=== PATIENT | female | born 1930 | race Caucasian/White ===

== ENCOUNTER 2017-09-26 14:31 | Emergency (ER) | payer MEDICARE ==
[~2017-09-26] VITALS: Ht 160 cm; Wt 77.1 kg
[~2017-09-26 14:31] MED LIST: ACET325 PO; ARTIFICIAL TEA3.5 G1 BOTHEYES; ASPI325 PO; ASPI500; ASPI81CH PO; ASPI81EC PO; ATOR40TA; ATOR40TA PO; AZIT250 PO; BISA10S PR; CALCAVITD PO; CALCAVITDA PO; CEFU250 PO; CITA20 PO; CLOP75; DIAZ5 PO; DIGO.125; DIGO.125 PO; DIGO.25 PO; DILT120 PO; DILT120ERA PO; DILT180 PO; DIPH25; DOCU100 PO; FURO20 PO; HYDACE5 PO; HYDMETSO BOTHEYES; IBUP400 PO; IBUP600 PO; LAVAP17G PO; LEVFLO500 PO; LIDO5TP TOP; LOPE2C PO; LORA.5 PO; LORA1 PO; MECL25 PO; METO100 PO; METO100ER PO; METO25 PO; METO25ER PO; METO50ER PO; METR500 PO; Milk Of Ma400 MG/5 M PO; Mobic15 MG PO; NITR100CA PO; OMEPRAZOLE MAGN20 MG PO; ONDA4 PO; ONDA4ODT MM; ONDA8ODT MM; OXYC1TAB11; POTCHL10ER PO; PROACE100 PO; PROACE50 PO; PROM25 PO; PROP30DR BOTHEYES; Percocet 5-3251 EACH PO; RXONDA4ODT MM; RXPROACE PO; SULTRIDS PO; Secura Protecti50 GM TOP; Systane Nightt3.5 GM BOTHEYES; TETR.05OPS BOTHEYES; TRAM50 PO; Tylenol #3 El12.5 ML PO; Tylenol With C1 EACH PO; Ultram50 MG PO; VERA120ERB PO; VITA25000 PO; VITAMIN A PO; WARF1 PO; WARF2 PO; WARF4; WARF4 PO; Zofran4 MG PO
[2017-09-26 15:05] LABS: BASOPHILS ABSOLUTE AUTO 0.03 K/mm3 (0.00-0.23); BASOPHILS PERCENT AUTO 0 % (0-2); EOSINOPHILS ABSOLUTE AUTO 0.16 K/mm3 (0.00-0.68); EOSINOPHILS PERCENT AUTO 2 % (0-6); Hematocrit 42.4 % (33.0-51.0); Hemoglobin 13.5 g/dL (11.5-16.0); IMMATURE GRAN ABSOLUTE AUTO 0.04 K/mm3 (0.00-0.10); IMMATURE GRAN PERCENT AUTO 0 % (0-1); LYMPHOCYTES ABSOLUTE AUTO 0.92 K/mm3 (0.84-5.20); LYMPHOCYTES PERCENT AUTO 10 % (21-46); MONOCYTES ABSOLUTE AUTO 0.58 K/mm3 (0.16-1.47); MONOCYTES PERCENT AUTO 6 % (4-13); Mean Corpuscular HGB 29.2 pg (26.0-34.0); Mean Corpuscular HGB Conc 31.8 g/dL (31.5-36.5); Mean Corpuscular Volume 92 fL (80-100); Mean Platelet Volume 9.1 fL (9.1-12.4); NEUTROPHILS ABSOLUTE AUTO 7.61 K/mm3 (1.96-9.15); NEUTROPHILS PERCENT AUTO 82 % (41-73); Platelet Count 235 K/mm3 (150-400); RDW Coefficient Variation 14.2 % (11.7-14.2); RDW Standard Deviation 47.8 fL (35.1-46.3); Red Blood Cell Count 4.62 M/mm3 (3.80-5.20); White Blood Cell Count 9.34 K/mm3 (4.00-11.30)
[2017-09-26 15:32] LABS: Alanine Aminotransfer (ALT/SGP 14 U/L (12-78); Albumin, Blood 3.2 g/dL (3.4-5.0); Albumin/Globulin Ratio 0.7 (0.8-1.8); Alk Phos 117 U/L (50-136); Anion Gap 7 mmol/L (6-16); Aspartate Aminotrans (AST/SGOT 17 U/L (12-37); Bilirubin, Total 0.5 mg/dL (0.1-1.0); Blood Urea Nitrogen 21 mg/dL (8-24); Bun/Creatinine Ratio 21.4 (12.0-20.0); CO2, Blood 26 mmol/L (21-32); Calcium, Blood 8.4 mg/dL (8.5-10.1); Chloride, Blood 104 mmol/L (98-108); Creatinine, Blood 0.98 mg/dL (0.40-1.00); Globulin, Blood 4.7 g/dL (2.2-4.0); Glomerular Filtration Rate 57 (60-); Glucose, Blood 101 mg/dL (70-99); Potassium, Blood 4.4 mmol/L (3.5-5.5); Sodium, Blood 137 mmol/L (136-145); Total Protein, Blood 7.9 g/dL (6.4-8.2)
[2017-09-26 15:38] LABS: Troponin I <0.015 ng/mL (0.000-0.040)
[2017-09-26] MEDS ORDERED: LORA2 PO (15:58)
[2017-09-26] MEDS ORDERED: TRAM50 PO (15:59)
[2017-09-26] MEDS ORDERED: Zofran Odt4 MG SL (18:07)
[2017-09-26 19:10] LABS: Adenovirus F 40/41 Not Detected (NOT DETECT); Astrovirus Not Detected (NOT DETECT); Campylobacter Sp Not Detected (NOT DETECT); Cryptosporidium Not Detected (NOT DETECT); Cyclospora Cayetanensis Not Detected (NOT DETECT); E. Coli O157 Not Detected (NOT DETECT); Entamoeba Histolytica Not Detected (NOT DETECT); Enteroaggregative E. coli-EAEC Not Detected (NOT DETECT); Enteropathogenic E. coli-EPEC Not Detected (NOT DETECT); Enterotoxigenic E. coli-ETEC Not Detected (NOT DETECT); Giardia Lamblia Not Detected (NOT DETECT); Plesiomonas Shigelloides Not Detected (NOT DETECT); Rotavirus A Not Detected (NOT DETECT); Salmonella Sp Not Detected (NOT DETECT); Sapovirus Not Detected (NOT DETECT); Shiga Toxin-prod E. coli-STEC Not Detected (NOT DETECT); Shigella/Enteroin E. coli-EIEC Not Detected (NOT DETECT); Vibrio Cholerae Not Detected (NOT DETECT); Vibrio Sp Not Detected (NOT DETECT); Yersinia Enterocolitica Not Detected (NOT DETECT)
[2017-09-26 20:09] LABS: Influenza A Negative (NEGATIVE); Influenza B Negative (NEGATIVE)
[2017-09-26] MEDS ORDERED: LOPE2C PO (21:07)
[2017-09-26 21:56] LABS: Norovirus GI/GII Detected (NOT DETECT)
[2017-12-31] MEDS ORDERED: WARF2 PO (11:51)
[2017-12-31] MEDS ORDERED: METO25ER PO (11:52)
[2017-12-31] MEDS ORDERED: ASPI81CH PO (11:53)
[2017-12-31] MEDS ORDERED: Vitamin A8000 UNIT PO (11:54)
[2017-12-31] MEDS ORDERED: CALCIUM + D3 E1 EACH PO (12:05)
[2017-12-31] MEDS ORDERED: DILT120 PO (12:06)
[2017-12-31] MEDS ORDERED: CITA20 PO (12:06)
[2017-12-31] MEDS ORDERED: TRAM50 PO (12:07)
[2017-12-31] MEDS ORDERED: Omeprazole20 M1 PO (12:07)
[2018-01-03] MEDS ORDERED: LUBRIFRESH PM BOTHEYES (06:57)
[2018-01-03] MEDS ORDERED: Systane 0.3-0.1 EACH BOTHEYES (06:58)
[2018-01-03] MEDS ORDERED: FLUC200 PO (09:57)
[2018-08-06] MEDS ORDERED: CLIN300 PO (21:38)
== END 2017-09-26 21:28 | disposition home or self-care (01) ==
LOC: ER 14:31
PROVIDERS: Physician Assistant
DX: R07.2 Precordial pain (principal); A08.39 Other viral enteritis; I48.91 Unspecified atrial fibrillation; F03.90 Unspecified dementia, unspecified severity, without behavioral disturbance, psychotic disturbance, mood disturbance, and anxiety; Z88.0 Allergy status to penicillin; Z88.8 Allergy status to other drugs, medicaments and biological substances; Z88.5 Allergy status to narcotic agent; Z88.1 Allergy status to other antibiotic agents; Z79.82 Long term (current) use of aspirin; Z79.899 Other long term (current) drug therapy; Z79.01 Long term (current) use of anticoagulants
CPT/HCPCS: 71046; 80053; 84484; 85025; 87507; 87804; 93005; 93010; 99284

== ENCOUNTER 2017-09-27 04:29 | Observation (INO) | payer MEDICARE ==
[~2017-09-27] VITALS: Ht 162.6 cm; Wt 66.6 kg
[~2017-09-27 04:29] MED LIST changes: +LORA2 PO; +Zofran Odt4 MG SL
[2017-09-27 04:45] LABS: PCO2 Arterial 36.2 mmHg (35-45); PO2 Arterial 72.8 mmHg (80-100); pH Blood Arterial 7.39 (7.35-7.45)
[2017-09-27 04:49] LABS: BASOPHILS ABSOLUTE AUTO 0.02 K/mm3 (0.00-0.23); BASOPHILS PERCENT AUTO 0 % (0-2); EOSINOPHILS ABSOLUTE AUTO 0.02 K/mm3 (0.00-0.68); EOSINOPHILS PERCENT AUTO 0 % (0-6); Hematocrit 39.8 % (33.0-51.0); Hemoglobin 12.6 g/dL (11.5-16.0); IMMATURE GRAN ABSOLUTE AUTO 0.01 K/mm3 (0.00-0.10); IMMATURE GRAN PERCENT AUTO 0 % (0-1); LYMPHOCYTES ABSOLUTE AUTO 0.54 K/mm3 (0.84-5.20); LYMPHOCYTES PERCENT AUTO 10 % (21-46); MONOCYTES ABSOLUTE AUTO 0.38 K/mm3 (0.16-1.47); MONOCYTES PERCENT AUTO 7 % (4-13); Mean Corpuscular HGB Conc 31.7 g/dL (31.5-36.5); Mean Corpuscular Volume 92 fL (80-100); NEUTROPHILS ABSOLUTE AUTO 4.39 K/mm3 (1.96-9.15); NEUTROPHILS PERCENT AUTO 82 % (41-73); Platelet Count 200 K/mm3 (150-400); RDW Coefficient Variation 14.1 % (11.7-14.2); RDW Standard Deviation 47.3 fL (35.1-46.3); Red Blood Cell Count 4.35 M/mm3 (3.80-5.20); White Blood Cell Count 5.36 K/mm3 (4.00-11.30)
[2017-09-27 05:09] LABS: Alanine Aminotransfer (ALT/SGP 15 U/L (12-78); Albumin/Globulin Ratio 0.8 (0.8-1.8); Alk Phos 119 U/L (50-136); Anion Gap 10 mmol/L (6-16); Aspartate Aminotrans (AST/SGOT 16 U/L (12-37); Bilirubin, Total 0.6 mg/dL (0.1-1.0); Blood Urea Nitrogen 33 mg/dL (8-24); Bun/Creatinine Ratio 26.4 (12.0-20.0); CO2, Blood 23 mmol/L (21-32); Calcium, Blood 8.1 mg/dL (8.5-10.1); Chloride, Blood 105 mmol/L (98-108); Creatinine, Blood 1.25 mg/dL (0.40-1.00); Glomerular Filtration Rate 43 (60-); Glucose, Blood 123 mg/dL (70-99); Potassium, Blood 4.3 mmol/L (3.5-5.5); Sodium, Blood 138 mmol/L (136-145); Troponin I <0.015 ng/mL (0.000-0.040)
[2017-09-27 05:15] LABS: International Normalized Ratio 2.3; Prothrombin Time Results 24.5 Sec (9.7-11.5)
[2017-12-31] MEDS ORDERED: WARF2 PO (11:51)
[2017-12-31] MEDS ORDERED: METO25ER PO (11:52)
[2017-12-31] MEDS ORDERED: ASPI81CH PO (11:53)
[2017-12-31] MEDS ORDERED: Vitamin A8000 UNIT PO (11:54)
[2017-12-31] MEDS ORDERED: CALCIUM + D3 E1 EACH PO (12:05)
[2017-12-31] MEDS ORDERED: CITA20 PO (12:06)
[2017-12-31] MEDS ORDERED: DILT120 PO (12:06)
[2017-12-31] MEDS ORDERED: TRAM50 PO (12:07)
[2017-12-31] MEDS ORDERED: Omeprazole20 M1 PO (12:07)
[2018-01-03] MEDS ORDERED: LUBRIFRESH PM BOTHEYES (06:57)
[2018-01-03] MEDS ORDERED: Systane 0.3-0.1 EACH BOTHEYES (06:58)
[2018-01-03] MEDS ORDERED: FLUC200 PO (09:57)
[2018-08-06] MEDS ORDERED: CLIN300 PO (21:38)
== END 2017-09-27 15:38 | disposition home or self-care (01) ==
LOC: ER 04:29 → PCU 04:30 → ER 04:52 → PCU 06:06
PROVIDERS: Emergency Medicine; Family Medicine
DX: R55 Syncope and collapse (principal); R41.82 Altered mental status, unspecified; A08.11 Acute gastroenteropathy due to Norwalk agent; N17.9 Acute kidney failure, unspecified; F03.90 Unspecified dementia, unspecified severity, without behavioral disturbance, psychotic disturbance, mood disturbance, and anxiety; I48.91 Unspecified atrial fibrillation; E78.5 Hyperlipidemia, unspecified; R32 Unspecified urinary incontinence; I25.10 Atherosclerotic heart disease of native coronary artery without angina pectoris; F41.9 Anxiety disorder, unspecified; F32.9 Major depressive disorder, single episode, unspecified; Z66 Do not resuscitate; Z95.0 Presence of cardiac pacemaker; Z95.5 Presence of coronary angioplasty implant and graft; Z88.5 Allergy status to narcotic agent; Z79.899 Other long term (current) drug therapy; Z79.82 Long term (current) use of aspirin; Z79.01 Long term (current) use of anticoagulants; Z88.8 Allergy status to other drugs, medicaments and biological substances; Z88.1 Allergy status to other antibiotic agents
CPT/HCPCS: 36600; 70450; 80053; 82803; 84484; 85025; 85610; 92610; 93005; 93010; 96361; 96374; 99285; G0378; G8996; G8997; J2405; J7030

== ENCOUNTER → 2018-01-07 | Outpatient (CLI) | payer MEDICARE ==
[~2018-01-07] MED LIST changes: +CALCIUM + D3 E1 EACH PO; +FLUC200 PO; +LUBRIFRESH PM BOTHEYES; +Omeprazole20 M1 PO; +Systane 0.3-0.1 EACH BOTHEYES; +Vitamin A8000 UNIT PO
[2018-01-07 19:31] LABS: Bilirubin, Urine Neg (Neg); Blood, Urine 5+ (Neg); Glucose Qualitative, Urine Neg (Neg); Ketones, Urine Neg (Neg); Leukocyte Esterase, Urine 3+ (Neg); Nitrite, Urine Pos (Neg); Protein, Urine 2+ (Neg); Specific Gravity, Urine 1.015 (1.003-1.022); Urobilinogen, Urine NORM (Normal)
[2018-01-07 19:39] LABS: Appearance, Urine Hazy (Clear); Color, Urine Yellow (P-Yellow); Red Blood Cells, Urine 25-50 /hpf (0-2); Squamous Epithelial Cells Few /hpf (Few); White Blood Cells, Urine TNTC /hpf (0-5)
[2018-01-07 19:40] LABS: Bacteria Many /hpf
== END | disposition home or self-care (01) ==
LOC: LAB SHORT 15:00 → LAB 15:00
PROVIDERS: Family Medicine
DX: N39.0 Urinary tract infection, site not specified (principal)
CPT/HCPCS: 81001; 87077; 87086; 87186

== ENCOUNTER 2018-01-14 14:17 | Emergency (ER) | payer MEDICARE ==
[~2018-01-14] VITALS: Ht 152.4 cm; Wt 65.8 kg
== END 2018-01-14 15:12 | disposition home or self-care (01) ==
LOC: ER 14:17
DX: D68.8 Other specified coagulation defects (principal); R79.9 Abnormal finding of blood chemistry, unspecified; T45.515A Adverse effect of anticoagulants, initial encounter; I48.91 Unspecified atrial fibrillation; F03.90 Unspecified dementia, unspecified severity, without behavioral disturbance, psychotic disturbance, mood disturbance, and anxiety; E78.5 Hyperlipidemia, unspecified
CPT/HCPCS: 96372; 99283; J3430

== ENCOUNTER 2018-05-03 13:52 | Emergency (ER) | payer MEDICARE ==
[~2018-05-03] VITALS: Ht 170.2 cm; Wt 77.1 kg
[2018-05-03] MEDS ORDERED: FURO40 PO (14:03)
[2018-05-03] MEDS ORDERED: Mobic15 MG PO (14:04)
[2018-05-03] MEDS ORDERED: Micro-K10 MEQ (14:06)
[2018-05-03] MEDS ORDERED: WARF1 PO (14:08)
[2018-05-03] MEDS ORDERED: NYST100000 (14:09)
[2018-05-03 14:44] LABS: BASOPHILS ABSOLUTE AUTO 0.03 K/mm3 (0.00-0.23); BASOPHILS PERCENT AUTO 1 % (0-2); EOSINOPHILS ABSOLUTE AUTO 0.28 K/mm3 (0.00-0.68); EOSINOPHILS PERCENT AUTO 5 % (0-6); Hematocrit 42.6 % (33.0-51.0); Hemoglobin 13.7 g/dL (11.5-16.0); IMMATURE GRAN ABSOLUTE AUTO 0.01 K/mm3 (0.00-0.10); IMMATURE GRAN PERCENT AUTO 0 % (0-1); LYMPHOCYTES ABSOLUTE AUTO 2.08 K/mm3 (0.84-5.20); LYMPHOCYTES PERCENT AUTO 35 % (21-46); MONOCYTES ABSOLUTE AUTO 0.49 K/mm3 (0.16-1.47); MONOCYTES PERCENT AUTO 8 % (4-13); Mean Corpuscular HGB 30.4 pg (26.0-34.0); Mean Corpuscular HGB Conc 32.2 g/dL (31.5-36.5); Mean Corpuscular Volume 95 fL (80-100); Mean Platelet Volume 9.4 fL (9.1-12.4); NEUTROPHILS ABSOLUTE AUTO 3.02 K/mm3 (1.96-9.15); NEUTROPHILS PERCENT AUTO 51 % (41-73); Platelet Count 223 K/mm3 (150-400); RDW Coefficient Variation 13.8 % (11.7-14.2); RDW Standard Deviation 47.7 fL (35.1-46.3); White Blood Cell Count 5.91 K/mm3 (4.00-11.30)
[2018-05-03 15:00] LABS: Source, Urine Clean Catch
[2018-05-03 15:02] LABS: Bilirubin, Urine Neg (Neg); Blood, Urine 1+ (Neg); Glucose Qualitative, Urine Neg (Neg); Ketones, Urine Neg (Neg); Leukocyte Esterase, Urine 3+ (Neg); Nitrite, Urine Neg (Neg); Protein, Urine Neg (Neg); Specific Gravity, Urine 1.015 (1.003-1.022); Urobilinogen, Urine NORM (Normal)
[2018-05-03 15:04] LABS: Alanine Aminotransfer (ALT/SGP 20 U/L (12-78); Albumin, Blood 3.4 g/dL (3.4-5.0); Albumin/Globulin Ratio 0.7 (0.8-1.8); Alk Phos 127 U/L (50-136); Anion Gap 9 mmol/L (6-16); Aspartate Aminotrans (AST/SGOT 20 U/L (12-37); Bilirubin, Total 0.5 mg/dL (0.1-1.0); Blood Urea Nitrogen 20 mg/dL (8-24); Bun/Creatinine Ratio 15.9 (12.0-20.0); CO2, Blood 25 mmol/L (21-32); Calcium, Blood 8.7 mg/dL (8.5-10.1); Chloride, Blood 105 mmol/L (98-108); Creatinine, Blood 1.26 mg/dL (0.40-1.00); Globulin, Blood 4.6 g/dL (2.2-4.0); Glomerular Filtration Rate 43 (60-); Glucose, Blood 115 mg/dL (70-99); Potassium, Blood 4.2 mmol/L (3.5-5.5); Sodium, Blood 139 mmol/L (136-145)
[2018-05-03 15:07] LABS: Troponin I <0.015 ng/mL (0.000-0.040)
[2018-05-03 15:19] LABS: Appearance, Urine Hazy (Clear); Color, Urine Yellow (P-Yellow)
[2018-05-03 15:20] LABS: Bacteria Many /hpf; Squamous Epithelial Cells Few /hpf (Few); White Blood Cells, Urine TNTC /hpf (0-5)
[2018-05-03 15:30] LABS: International Normalized Ratio 1.12; Prothrombin Time Results 11.5 Sec (9.7-11.5)
[2018-05-03] MEDS ORDERED: Bactrim Ds Tab1 EACH PO (16:00)
== END 2018-05-03 16:33 | disposition home or self-care (01) ==
LOC: ER 13:52
PROVIDERS: Emergency Medicine
DX: N39.0 Urinary tract infection, site not specified (principal); Z88.0 Allergy status to penicillin; Z88.8 Allergy status to other drugs, medicaments and biological substances; Z88.5 Allergy status to narcotic agent; Z88.1 Allergy status to other antibiotic agents; Z79.899 Other long term (current) drug therapy; Z79.01 Long term (current) use of anticoagulants; Z79.82 Long term (current) use of aspirin; I48.91 Unspecified atrial fibrillation; F03.90 Unspecified dementia, unspecified severity, without behavioral disturbance, psychotic disturbance, mood disturbance, and anxiety
CPT/HCPCS: 36415; 70450; 80053; 81001; 84484; 85025; 85610; 87077; 87086; 87186; 96360; 99285-25; J7030

== ENCOUNTER → 2018-10-29 | Outpatient (CLI) | payer MEDICARE ==
[~2018-10-29] MED LIST changes: +Bactrim Ds Tab1 EACH PO; +CLIN300 PO; +FURO40 PO; +Micro-K10 MEQ; +NYST100000
[2018-10-29 15:05] LABS: Bilirubin, Urine Neg (Neg); Blood, Urine 3+ (Neg); Glucose Qualitative, Urine Neg (Neg); Ketones, Urine Neg (Neg); Leukocyte Esterase, Urine 3+ (Neg); Nitrite, Urine Neg (Neg); Protein, Urine 2+ (Neg); Urobilinogen, Urine NORM (Normal); pH, Urine 6.5 (5.0-8.0)
[2018-10-29 15:38] LABS: Appearance, Urine Hazy (Clear); Color, Urine Yellow (P-Yellow)
[2018-10-29 15:40] LABS: Bacteria Many /hpf; Squamous Epithelial Cells Few /hpf (Few); White Blood Cells, Urine TNTC /hpf (0-5)
== END | disposition home or self-care (01) ==
LOC: LAB 14:47 → LAB SHORT 14:47
PROVIDERS: Family Medicine
DX: N39.0 Urinary tract infection, site not specified (principal)
CPT/HCPCS: 81001; 87077; 87086; 87186

== ENCOUNTER → 2018-12-27 | Outpatient (CLI) | payer MEDICARE ==
[2018-12-27 14:35] LABS: Appearance, Urine Hazy (Clear); Bilirubin, Urine Neg (Neg); Blood, Urine 1+ (Neg); Color, Urine Yellow (P-Yellow); Glucose Qualitative, Urine Neg (Neg); Ketones, Urine Neg (Neg); Leukocyte Esterase, Urine 3+ (Neg); Nitrite, Urine Neg (Neg); Protein, Urine Neg (Neg); Specific Gravity, Urine 1.015 (1.003-1.022); Urobilinogen, Urine NORM (Normal); pH, Urine 6.5 (5.0-8.0)
[2018-12-27 14:43] LABS: White Blood Cells, Urine 50-100 /hpf (0-5)
[2018-12-27 14:44] LABS: Bacteria Many /hpf; Squamous Epithelial Cells Few /hpf (Few)
== END | disposition home or self-care (01) ==
LOC: LAB SHORT 13:50 → LAB 13:50
PROVIDERS: Family Medicine
DX: N39.0 Urinary tract infection, site not specified (principal)
CPT/HCPCS: 81001; 87077; 87086; 87186

== ENCOUNTER → 2019-03-18 | Outpatient (CLI) | payer MEDICARE ==
[~2019-03-18] MED LIST changes: +Anti-Diarrheal2 MG PO; +CIPR500 PO; +ECHINACEA350 MG PO; +ENEMA READY TO133 ML PR; +Nystop60 GM TOP; +OMEPRAZOLE20 MG PO; -Omeprazole20 M1 PO; +Systane 0.3-0.415 ML BOTHEYES; +VISINE TEARS BOTHEYES; +VITAMIN C500 M1 PO
[2019-03-18 14:58] LABS: Bilirubin, Urine Neg (Neg); Blood, Urine 3+ (Neg); Glucose Qualitative, Urine Neg (Neg); Ketones, Urine Neg (Neg); Leukocyte Esterase, Urine 3+ (Neg); Nitrite, Urine Neg (Neg); Protein, Urine 2+ (Neg); Specific Gravity, Urine 1.015 (1.003-1.022); Urobilinogen, Urine NORM (Normal)
[2019-03-18 15:39] LABS: Appearance, Urine Cloudy (Clear); Color, Urine Yellow (P-Yellow)
[2019-03-18 15:41] LABS: White Blood Cells, Urine TNTC /hpf (0-5)
[2019-03-18 15:43] LABS: Bacteria Many /hpf; Squamous Epithelial Cells Few /hpf (Few)
== END | disposition home or self-care (01) ==
LOC: LAB SHORT 14:39 → LAB 14:39
PROVIDERS: Family Medicine
DX: N39.0 Urinary tract infection, site not specified (principal)
CPT/HCPCS: 81001; 87077; 87086; 87186

== ENCOUNTER 2019-03-27 19:13 | Emergency (ER) | payer MEDICARE ==
[~2019-03-27] VITALS: Ht 160 cm; Wt 61.2 kg
[~2019-03-27 19:13] MED LIST changes: -Anti-Diarrheal2 MG PO; -CIPR500 PO; -ECHINACEA350 MG PO; -ENEMA READY TO133 ML PR; -Nystop60 GM TOP; -Systane 0.3-0.415 ML BOTHEYES; -VISINE TEARS BOTHEYES; -VITAMIN C500 M1 PO
[2019-03-27] MEDS ORDERED: ECHINACEA350 MG PO (19:29)
[2019-03-27] MEDS ORDERED: VITAMIN C500 M1 PO (19:31)
[2019-03-27 20:07] LABS: International Normalized Ratio 1.36
[2019-03-27 20:10] LABS: Albumin, Blood 3.3 g/dL (3.4-5.0); Albumin/Globulin Ratio 0.7 (0.8-1.8); Bilirubin, Total 0.8 mg/dL (0.1-1.0); Calcium, Blood 9.3 mg/dL (8.5-10.1); Creatinine, Blood 1.5 mg/dL (0.40-1.00); Potassium, Blood 4.4 mmol/L (3.5-5.5); Total Protein, Blood 8.3 g/dL (6.4-8.2)
[2019-03-27 20:20] LABS: Source, Urine Catheter
[2019-03-27 20:22] LABS: Appearance, Urine Turbid (Clear); Bilirubin, Urine Neg (Neg); Blood, Urine Neg (Neg); Color, Urine Yellow (P-Yellow); Glucose Qualitative, Urine Neg (Neg); Ketones, Urine Neg (Neg); Leukocyte Esterase, Urine 3+ (Neg); Nitrite, Urine Neg (Neg); Protein, Urine 1+ (Neg); Specific Gravity, Urine 1.025 (1.003-1.022); Urobilinogen, Urine NORM (Normal)
[2019-03-27 20:32] LABS: Bacteria Many /hpf; Red Blood Cells, Urine Not Seen /hpf (0-2); Squamous Epithelial Cells Many /hpf (Few); White Blood Cells, Urine TNTC /hpf (0-5)
[2019-03-27 20:33] LABS: Amorphous Mod (0-Heavy)
[2019-03-27] MEDS ORDERED: Bactrim Ds Tab1 EACH PO (20:43)
== END 2019-03-27 21:04 | disposition home or self-care (01) ==
LOC: ER 19:13
PROVIDERS: Emergency Medicine
DX: N39.0 Urinary tract infection, site not specified (principal); Z86.73 Personal history of transient ischemic attack (TIA), and cerebral infarction without residual deficits; R79.1 Abnormal coagulation profile; Z88.0 Allergy status to penicillin; Z88.8 Allergy status to other drugs, medicaments and biological substances; Z88.5 Allergy status to narcotic agent; Z88.1 Allergy status to other antibiotic agents; Z79.899 Other long term (current) drug therapy; Z79.01 Long term (current) use of anticoagulants; Z79.82 Long term (current) use of aspirin; I48.91 Unspecified atrial fibrillation; F03.90 Unspecified dementia, unspecified severity, without behavioral disturbance, psychotic disturbance, mood disturbance, and anxiety; E78.5 Hyperlipidemia, unspecified
CPT/HCPCS: 36415; 70450; 80053; 81001; 85610; 87086; 93005; 93010; 99284-25; P9612

== ENCOUNTER 2019-06-15 20:43 | Inpatient (IN) | payer MEDICARE ==
[~2019-06-15] VITALS: Ht 167.6 cm; Wt 69.2 kg
[~2019-06-15 20:43] MED LIST changes: +ECHINACEA350 MG PO; +VITAMIN C500 M1 PO
[2019-06-15] MEDS ORDERED: ONDA4ODT MM (21:04)
[2019-06-15] MEDS ORDERED: TRAM50 PO (21:05)
[2019-06-15] MEDS ORDERED: ACET325 PO (21:08)
[2019-06-15] MEDS ORDERED: BISA10S PR (21:09)
[2019-06-15 21:13] LABS: BASOPHILS ABSOLUTE AUTO 0.06 K/mm3 (0.00-0.23); BASOPHILS PERCENT AUTO 1 % (0-2); EOSINOPHILS ABSOLUTE AUTO 0.28 K/mm3 (0.00-0.68); EOSINOPHILS PERCENT AUTO 5 % (0-6); Hematocrit 38.7 % (33.0-51.0); Hemoglobin 12.5 g/dL (11.5-16.0); IMMATURE GRAN ABSOLUTE AUTO 0.01 K/mm3 (0.00-0.10); IMMATURE GRAN PERCENT AUTO 0 % (0-1); LYMPHOCYTES ABSOLUTE AUTO 2.19 K/mm3 (0.84-5.20); LYMPHOCYTES PERCENT AUTO 38 % (21-46); MONOCYTES PERCENT AUTO 9 % (4-13); Mean Corpuscular HGB 30.8 pg (26.0-34.0); Mean Corpuscular HGB Conc 32.3 g/dL (31.5-36.5); Mean Corpuscular Volume 95 fL (80-100); Mean Platelet Volume 9.8 fL (9.1-12.4); NEUTROPHILS ABSOLUTE AUTO 2.79 K/mm3 (1.96-9.15); NEUTROPHILS PERCENT AUTO 48 % (41-73); Platelet Count 218 K/mm3 (150-400); RDW Coefficient Variation 13.9 % (11.7-14.2); RDW Standard Deviation 49.3 fL (35.1-46.3); Red Blood Cell Count 4.06 M/mm3 (3.80-5.20); White Blood Cell Count 5.83 K/mm3 (4.00-11.30)
[2019-06-15 21:25] LABS: Alanine Aminotransfer (ALT/SGP 16 U/L (12-78); Albumin, Blood 2.9 g/dL (3.4-5.0); Albumin/Globulin Ratio 0.7 (0.8-1.8); Alk Phos 97 U/L (50-136); Anion Gap 7 mmol/L (6-16); Aspartate Aminotrans (AST/SGOT 18 U/L (12-37); Bilirubin, Total 0.2 mg/dL (0.1-1.0); Blood Urea Nitrogen 24 mg/dL (8-24); Bun/Creatinine Ratio 21.2 (12.0-20.0); CO2, Blood 27 mmol/L (21-32); Calcium, Blood 8.5 mg/dL (8.5-10.1); Chloride, Blood 105 mmol/L (98-108); Creatinine, Blood 1.13 mg/dL (0.40-1.00); Globulin, Blood 4.3 g/dL (2.2-4.0); Glomerular Filtration Rate 48 (60-); Glucose, Blood 115 mg/dL (70-99); Sodium, Blood 139 mmol/L (136-145); Total Protein, Blood 7.2 g/dL (6.4-8.2)
[2019-06-15 22:01] LABS: Acetaminophen, Random <2.0 ug/mL (10.0-30.0); Free Thyroxine 0.84 ng/dL (0.70-1.60); Salicylate <1.7 mg/dL (2.8-20.0)
[2019-06-15 22:03] LABS: Triiodothyronine, Free 2.11 pg/mL (2.18-3.98)
[2019-06-15 22:07] LABS: Ethanol (Alcohol), Blood, Med <3 mg/dL; Troponin I <0.015 ng/mL (0.000-0.040)
[2019-06-15 22:40] LABS: Source, Urine Catheter
[2019-06-15 22:52] LABS: Bilirubin, Urine Neg (Neg); Blood, Urine 4+ (Neg); Glucose Qualitative, Urine Neg (Neg); Ketones, Urine Neg (Neg); Leukocyte Esterase, Urine 3+ (Neg); Nitrite, Urine Pos (Neg); Protein, Urine 3+ (Neg); Specific Gravity, Urine 1.025 (1.003-1.022); Urobilinogen, Urine NORM (Normal)
[2019-06-15 23:03] LABS: Appearance, Urine Turbid (Clear); Color, Urine Yellow (P-Yellow)
[2019-06-15 23:04] LABS: White Blood Cells, Urine TNTC /hpf (0-5)
[2019-06-15 23:05] LABS: Bacteria Many /hpf; Red Blood Cells, Urine 25-50 /hpf (0-2); Squamous Epithelial Cells Not Seen /hpf (Few)
[2019-06-15 23:13] LABS: U Amphetamine Screen Not Detected; U Barbituate Screen Not Detected; U Benzodiazapine Screen Not Detected; U Buprenorphine Screen Not Detected; U Cannabinoids Screen Not Detected; U Cocaine Screen Not Detected; U Methadone Screen Not Detected; U Methamphetamine Screen Not Detected; U Opiates Screen Not Detected; U Oxycodone Screen Not Detected; U Phencyclidine Screen Not Detected; U Propoxyphene Screen Not Detected
[2019-06-16 01:22] LABS: International Normalized Ratio 2.07; Prothrombin Time Results 20.5 Sec (9.7-11.5)
--- NOTE | 2019-06-16 02:20 | NUR ---
0200 PT ADMITTED TO ROOM 357 PER CART FROM ER.
--- NOTE | 2019-06-16 02:59 | NUR ---
Patient and family unable to verify med list. Med list from [facility] missing 2 pages, unsure if pt is still taking potassium and coumadin. Yonis night nurse is aware and will pass on to day shift so we can complete med list.
--- NOTE | 2019-06-16 04:23 | NUR ---
SHIFT SUMMARY: 88 Y/O FEMALE RESTED COMFORTABLY ALL SHIFT, LACTIC ACID 1.9 AT 0300 (EARLIER LAB WAS 2.[address] ARBOLEDA AWARE OF RESULTS), ALERT AND ORIENTED X 1, ATTENDS DIAPERS INTACT, DENIES PAIN OR NAUSEA, BED ALARM APPLIED, BED LOW POSITION WITH CALL LIGHT AT SIDE.
[2019-06-16 10:33] LABS: Hematocrit 39.9 % (33.0-51.0); Hemoglobin 13.2 g/dL (11.5-16.0); Mean Corpuscular HGB 30.6 pg (26.0-34.0); Mean Corpuscular HGB Conc 33.1 g/dL (31.5-36.5); Mean Corpuscular Volume 93 fL (80-100); Mean Platelet Volume 11.1 fL (9.1-12.4); Platelet Count 140 K/mm3 (150-400); RDW Standard Deviation 47.8 fL (35.1-46.3); Red Blood Cell Count 4.31 M/mm3 (3.80-5.20); White Blood Cell Count 5.81 K/mm3 (4.00-11.30)
[2019-06-16 11:12] LABS: Albumin, Blood 2.6 g/dL (3.4-5.0); Albumin/Globulin Ratio 0.6 (0.8-1.8); Bilirubin, Total 0.4 mg/dL (0.1-1.0); Bun/Creatinine Ratio 19.8 (12.0-20.0); Creatinine, Blood 0.96 mg/dL (0.40-1.00); Globulin, Blood 4.5 g/dL (2.2-4.0); Potassium, Blood 4.9 mmol/L (3.5-5.5); Total Protein, Blood 7.1 g/dL (6.4-8.2)
--- NOTE | 2019-06-16 19:16 | NUR ---
SHIFT SUMMARY PT HAS BEEN CONFUSED ALL SHIFT. PT TRIED TO VOID BUT WAS UNABLE TO. BLADDER SCAN DONE AND PT HAD OVER 500 ML IN BLADDER. THIS RN CALLED DR. CLINE AND NEW ORDERS FOR BLADDER SCAN AND STRAIGHT CATH IF OVER 350 ML EVERY 6 HOURS. PT HAD AN INCONTINENT VOID AND POST VOID BLADDER SCAN WAS 347 ML. DID NOT STRAIGHT CATH DUE TO UNDER 350 ML. REPORT GIVEN TO DEDE RN. NO FURTHER CHANGES AT THIS TIME. CALL LIGHT IN REACH AND BED ALARM ON FOR SAFETY.
[2019-06-17 05:03] LABS: International Normalized Ratio 2.01
--- NOTE | 2019-06-17 05:50 | NUR ---
SHIFT SUMMARY AOX SELF. LS CLEAR, SOB W/ACTIVITY. NO C/O PAIN OR NAUSEA. TELE 60 PACED. L AC IV IS SL. BEDCHECK ON, NO ALARMS OVERNIGHT. VSS ON RA. BLADDER SCAN READ 106 AND 291 SO NO STRAIGHT CATH NEEDED. PILLS IN APPLESAUCE. UNSURE OF DC PLAN AT THIS TIME.
[2019-06-17] MEDS ORDERED: VISINE TEARS BOTHEYES (12:47)
[2019-06-17] MEDS ORDERED: Nystop60 GM TOP (12:49)
[2019-06-17] MEDS ORDERED: Secura Protecti50 GM TOP (12:50)
[2019-06-17] MEDS ORDERED: Systane 0.3-0.415 ML BOTHEYES (12:52)
[2019-06-17] MEDS ORDERED: Anti-Diarrheal2 MG PO (13:59)
[2019-06-17] MEDS ORDERED: Milk Of Ma400 MG/5 M PO (14:00)
[2019-06-17] MEDS ORDERED: ENEMA READY TO133 ML PR (14:04)
[2019-06-17] MEDS ORDERED: CIPR500 PO (15:27)
--- NOTE | 2019-06-17 16:51 | NUR ---
DISCHARGE PT DISCHARGED TO HOME. THIS RN FAXED MEDICATION AND DISCHARGE ORDERS TO [facility]. IV REMOVED WITHOUT DIFFICULTY. PT DISCHARGED TO PRIVATE VEHILCE VIA WHEELCHAIR. PT'S BELONGINGS WITH PT AND PT'S DAUGHTERS. THIS RN CALLED [facility] AND NOTIFIED HIM THAT PT WAS DISCHARGED AND HEADING TO [facility].
== END 2019-06-17 16:32 | disposition home health service (06) | DRG 872 ==
LOC: ER 20:43 → MEDS 06-16 00:30 → ENPENDDIS 06-17 11:19 → MEDS 06-17 16:32
PROVIDERS: Emergency Medicine; ADMIT Internal Medicine
DX: A41.51 Sepsis due to Escherichia coli [E. coli] (principal); N39.0 Urinary tract infection, site not specified; G93.40 Encephalopathy, unspecified; R65.20 Severe sepsis without septic shock; I48.91 Unspecified atrial fibrillation; I25.10 Atherosclerotic heart disease of native coronary artery without angina pectoris; N18.3 Chronic kidney disease, stage 3 (moderate); K21.9 Gastro-esophageal reflux disease without esophagitis; Z95.0 Presence of cardiac pacemaker; F03.90 Unspecified dementia, unspecified severity, without behavioral disturbance, psychotic disturbance, mood disturbance, and anxiety
CPT/HCPCS: 36415; 70450; 71045; 80053; 81001; 83605; 84439; 84443; 84481; 84484; 85025; 85027; 85610; 87040; 87077; 87086; 87186; 93005; 93010; 96365; 97110; 97161; 97166; 97530; 99285-25; G0480; J0744; J1650; J7030; P9612

== ENCOUNTER → 2019-09-11 | Outpatient (CLI) | payer MEDICARE ==
[~2019-09-11] MED LIST changes: +Anti-Diarrheal2 MG PO; +CIPR500 PO; +ENEMA READY TO133 ML PR; +Nystop60 GM TOP; +Systane 0.3-0.415 ML BOTHEYES; +VISINE TEARS BOTHEYES
[2019-09-12 14:35] LABS: Appearance, Urine Cloudy (Clear); Bilirubin, Urine Neg (Neg); Blood, Urine 2+ (Neg); Color, Urine Yellow (P-Yellow); Glucose Qualitative, Urine Neg (Neg); Ketones, Urine Neg (Neg); Leukocyte Esterase, Urine 3+ (Neg); Nitrite, Urine Neg (Neg); Protein, Urine 2+ (Neg); Urobilinogen, Urine NORM (Normal)
[2019-09-12 14:56] LABS: White Blood Cells, Urine TNTC /hpf (0-5)
[2019-09-12 14:57] LABS: Bacteria Many /hpf; Squamous Epithelial Cells Few /hpf (Few)
== END | disposition home or self-care (01) ==
LOC: LAB 13:03 → LAB SHORT 13:03
PROVIDERS: Family Medicine
DX: N39.0 Urinary tract infection, site not specified (principal)
CPT/HCPCS: 81001; 87077; 87086; 87186

== ENCOUNTER → 2020-01-01 | Outpatient (CLI) | payer MEDICARE ==
[2020-01-01 12:36] LABS: International Normalized Ratio 2.7; Prothrombin Time Results 27.3 Sec (9.7-11.5)
== END | disposition home or self-care (01) ==
LOC: LAB 10:05 → LAB SHORT 10:05
PROVIDERS: Family Medicine
DX: Z79.01 Long term (current) use of anticoagulants (principal); Z51.81 Encounter for therapeutic drug level monitoring
CPT/HCPCS: 85610

== ENCOUNTER → 2020-02-27 | Outpatient (CLI) | payer MEDICARE, OTHER ==
[2020-02-27 19:59] LABS: Bilirubin, Urine Neg (Neg); Blood, Urine 4+ (Neg); Glucose Qualitative, Urine Neg (Neg); Ketones, Urine 1+ (Neg); Leukocyte Esterase, Urine 3+ (Neg); Nitrite, Urine Neg (Neg); Protein, Urine 3+ (Neg); Specific Gravity, Urine 1.025 (1.003-1.022); Urobilinogen, Urine NORM (Normal)
[2020-02-27 20:11] LABS: Appearance, Urine Turbid (Clear); Color, Urine Yellow (P-Yellow)
[2020-02-27 20:12] LABS: Bacteria Mod /hpf; Squamous Epithelial Cells Rare /hpf (Few); White Blood Cells, Urine TNTC /hpf (0-5)
== END | disposition home or self-care (01) ==
LOC: LAB 19:03 → LAB SHORT 19:03
PROVIDERS: Family Medicine
DX: N39.0 Urinary tract infection, site not specified (principal)
CPT/HCPCS: 81001; 87086

== ENCOUNTER → 2020-04-15 | Outpatient (CLI) | payer MEDICARE, OTHER ==
[2020-04-15 19:59] LABS: Appearance, Urine Turbid (Clear); Bilirubin, Urine Neg (Neg); Blood, Urine 4+ (Neg); Color, Urine Yellow (P-Yellow); Glucose Qualitative, Urine Neg (Neg); Ketones, Urine Neg (Neg); Leukocyte Esterase, Urine 3+ (Neg); Nitrite, Urine Neg (Neg); Protein, Urine 3+ (Neg); Urobilinogen, Urine NORM (Normal)
[2020-04-15 20:27] LABS: Bacteria Mod /hpf; Red Blood Cells, Urine 0-2 /hpf (0-2); Squamous Epithelial Cells Not Seen /hpf (Few); White Blood Cells, Urine TNTC /hpf (0-5)
== END | disposition home or self-care (01) ==
LOC: LAB SHORT 18:58 → LAB 18:58
PROVIDERS: Family Medicine
DX: N39.0 Urinary tract infection, site not specified (principal)
CPT/HCPCS: 81001; 87086

== ENCOUNTER → 2020-06-08 | Outpatient (CLI) | payer MEDICARE, OTHER ==
[2020-06-08 15:40] LABS: International Normalized Ratio 1.32; Prothrombin Time Results 13.9 Sec (9.7-11.5)
== END | disposition home or self-care (01) ==
LOC: LAB SHORT 12:40 → LAB 12:40
PROVIDERS: Family Medicine
DX: Z79.01 Long term (current) use of anticoagulants (principal); Z51.81 Encounter for therapeutic drug level monitoring
CPT/HCPCS: 85610

== ENCOUNTER → 2020-07-08 | Outpatient (CLI) | payer MEDICARE, OTHER ==
[2020-07-08 20:05] LABS: International Normalized Ratio 1.18; Prothrombin Time Results 12.5 Sec (9.7-11.5)
== END | disposition home or self-care (01) ==
LOC: LAB SHORT 19:12 → LAB 19:12
PROVIDERS: Family Medicine
DX: Z79.01 Long term (current) use of anticoagulants (principal); Z51.81 Encounter for therapeutic drug level monitoring
CPT/HCPCS: 85610